=== PATIENT | male | born 1960 | race Caucasian/White ===

== ENCOUNTER 2016-04-23 08:40 | Inpatient (IN) | payer OTHER ==
[2016-04-21 09:28] VITALS: Ht 180.3 cm; Wt 74.8 kg
[2016-04-23] VITALS (20 sets, daily range): BP systolic 126–148; RESP 12–18; TEMP 97.2–99.2
[~2016-04-23] VITALS: Ht 180.3 cm; Wt 74.8 kg
[2016-04-23] MEDS ORDERED: LACT RINGERS 1,000 ML IV SCH ×2 (08:45→09:25)
[2016-04-23] MEDS ORDERED: CEFOXITIN 2,000 MG in SODIUM CHLORIDE 0.9% 100 ML IV ONE (08:50)
[2016-04-23] MEDS ORDERED: METOCLOPRAMIDE 10 MG/2 ML VIAL IV PUSH ONE (09:25)
[2016-04-23] MEDS ORDERED: LIDOCAINE 1% BUFFERED 1 ML SYR INTRADERM PRN (09:25)
[2016-04-23] MEDS ORDERED: FAMOTIDINE 20 MG INJ IV ONE (09:25)
[2016-04-23] MEDS ORDERED: MIDAZOLAM 2 MG/2 ML INJ IV ONE (09:25)
[2016-04-23] MEDS ORDERED: GLYCOPYRROLATE 0.2 MG/ML VIAL IV ONE ×2 (09:25→10:30)
[2016-04-23] MEDS ORDERED: LIDOCAINE 1% 20ML NERVEBLOCK ONE (10:15)
[2016-04-23] MEDS ORDERED: LIDOCAINE 2% SYR 5 ML IV ONE (10:30)
[2016-04-23] MEDS ORDERED: NEOSTIGMINE 10 MG/10 ML VIAL IV ONE (10:30)
[2016-04-23] MEDS ORDERED: DEXAMETHASONE 4 MG/ML VIAL IV ONE (10:30)
[2016-04-23] MEDS ORDERED: ACETAMINOPHEN 1,000 MG/100 ML IV ONE (10:30)
[2016-04-23] MEDS ORDERED: DILAUDID 1 MG/ML AMP IV ONE (10:30)
[2016-04-23] MEDS ORDERED: PROPOFOL 20 ML PER ML IV ONE (10:30)
[2016-04-23] MEDS ORDERED: ONDANSETRON 4 MG VIAL IV PUSH ONE (10:30)
[2016-04-23] MEDS ORDERED: ROCURONIUM 50 MG VIAL IV ONE (10:30)
[2016-04-23] MEDS ORDERED: MORPHINE 2 MG/ML SYR IV PRN ×2 (13:05→14:40)
[2016-04-23] MEDS ORDERED: MORPHINE 4 MG/ML SYR IV PRN (13:05)
[2016-04-23] MEDS ORDERED: MEPERIDINE 25 MG/ML IV PRN (13:05)
[2016-04-23] MEDS ORDERED: ONDANSETRON 4 MG VIAL IV PRN (13:05)
[2016-04-23] MEDS ORDERED: OXYCODONE 5 MG TAB PO PRN (13:05)
[2016-04-23] MEDS ORDERED: ONDANSETRON 4 MG VIAL IV PUSH PRN (14:40)
[2016-04-23] MEDS ORDERED: SODIUM CHLORIDE 0.9% 1,000 ML IV SCH (14:40)
[2016-04-23] MEDS: DILAUDID 1 MG/ML AMP IV PRN ×2 (15:20→15:52)
[2016-04-23] MEDS ORDERED: *PINK BRACELET XX ONE (17:05)
[2016-04-23] MEDS ORDERED: MISSING DOSE XX ONE (18:00)
[2016-04-23] MEDS: SERTRALINE 100 MG TAB PO SCH (18:35)
[2016-04-23] MEDS: *HOME MEDS KEPT IN PHARMACY XX SCH (20:51)
[2016-04-23] MEDS: LEVETIRACETAM 500 MG TAB PO SCH (20:59)
[2016-04-23] MEDS: DOCUSATE SOD 100 MG CAP PO SCH (20:59)
[2016-04-24] VITALS (11 sets, daily range): BP systolic 106–140; RESP 16–20; TEMP 98.8–102.7
[2016-04-24] MEDS: MORPHINE 2 MG/ML SYR IV PRN ×2 (03:15→05:16)
[2016-04-24] MEDS ORDERED: CEFOXITIN 2,000 MG in SODIUM CHLORIDE 0.9% 100 ML IV ONE (06:15)
[2016-04-24] MEDS: DILAUDID 1 MG/ML AMP IV PRN ×8 (07:25→23:47)
[2016-04-24] MEDS: *HOME MEDS KEPT IN PHARMACY XX SCH ×2 (08:00→19:42)
[2016-04-24] MEDS ORDERED: SODIUM CHLORIDE 0.9% 1,000 ML IV SCH ×3 (08:20→17:30)
[2016-04-24] MEDS: DOCUSATE SOD 100 MG CAP PO SCH ×2 (08:45→20:50)
[2016-04-24] MEDS: LEVETIRACETAM 500 MG TAB PO SCH ×2 (08:45→20:50)
[2016-04-24] MEDS: SERTRALINE 100 MG TAB PO SCH (08:45)
[2016-04-24] MEDS ORDERED: CEFOXITIN 2,000 MG in SODIUM CHLORIDE 0.9% 100 ML IV SCH (12:00)
[2016-04-24] MEDS: CEFOXITIN 2,000 MG in SODIUM CHLORIDE 0.9% 100 ML IV SCH ×2 (15:11→23:46)
[2016-04-25 00:50] VITALS: BP_SYST 128; RESP 18; TEMP 102.3
[2016-04-25 02:30] VITALS: BP_SYST 119; RESP 18; TEMP 100
[2016-04-25] MEDS: DILAUDID 1 MG/ML AMP IV PRN ×5 (02:35→18:59)
[2016-04-25] MEDS ORDERED: KCL CR 20 MEQ TAB PO ONE (07:50)
[2016-04-25] MEDS: *HOME MEDS KEPT IN PHARMACY XX SCH ×2 (08:00→20:00)
[2016-04-25 08:02] VITALS: BP_SYST 107; RESP 16; TEMP 98
[2016-04-25] MEDS: CEFOXITIN 2,000 MG in SODIUM CHLORIDE 0.9% 100 ML IV SCH ×3 (08:34→23:13)
[2016-04-25] MEDS: SERTRALINE 100 MG TAB PO SCH (08:36)
[2016-04-25] MEDS: LEVETIRACETAM 500 MG TAB PO SCH ×2 (08:36→20:15)
[2016-04-25] MEDS: DOCUSATE SOD 100 MG CAP PO SCH ×2 (08:36→20:15)
[2016-04-25] MEDS: SENNA 8.6 MG TAB PO SCH (08:37)
[2016-04-25] MEDS: D5-1/2-NS W/KCL 20MEQ/L 1,000 ML IV SCH ×2 (08:39→23:18)
[2016-04-25] MEDS: OXYCODONE 5 MG TAB PO PRN ×3 (11:03→23:14)
[2016-04-25 11:22] VITALS: BP_SYST 109; RESP 16; TEMP 98.3
[2016-04-25 15:34] VITALS: BP_SYST 114; RESP 16; TEMP 98.7
[2016-04-25 18:37] VITALS: BP_SYST 109; RESP 20; TEMP 99.7
[2016-04-26] VITALS (7 sets, daily range): BP systolic 108–136; RESP 18–20; TEMP 98–98.5
[2016-04-26] MEDS: DILAUDID 1 MG/ML AMP IV PRN ×3 (00:54→07:44)
[2016-04-26] MEDS: OXYCODONE 5 MG TAB PO PRN ×3 (04:06→18:40)
[2016-04-26] MEDS: *HOME MEDS KEPT IN PHARMACY XX SCH ×2 (08:00→20:00)
[2016-04-26] MEDS: DOCUSATE SOD 100 MG CAP PO SCH ×2 (08:35→20:57)
[2016-04-26] MEDS: LEVETIRACETAM 500 MG TAB PO SCH ×2 (08:35→20:57)
[2016-04-26] MEDS: SENNA 8.6 MG TAB PO SCH (08:35)
[2016-04-26] MEDS: SERTRALINE 100 MG TAB PO SCH (08:35)
[2016-04-26] MEDS: CEFOXITIN 2,000 MG in SODIUM CHLORIDE 0.9% 100 ML IV SCH (08:39)
[2016-04-26] MEDS: D5-1/2-NS W/KCL 20MEQ/L 1,000 ML IV SCH ×2 (10:53→22:17)
[2016-04-26] MEDS: LEVOFLOXACIN 500 MG TAB PO SCH (13:17)
[2016-04-27 05:00] VITALS: BP_SYST 110; RESP 18; TEMP 98.1
[2016-04-27] MEDS: OXYCODONE 5 MG TAB PO PRN (05:08)
[2016-04-27] MEDS: *HOME MEDS KEPT IN PHARMACY XX SCH ×2 (08:00→11:22)
[2016-04-27] MEDS: DOCUSATE SOD 100 MG CAP PO SCH (08:09)
[2016-04-27 08:17] VITALS: BP_SYST 113; RESP 16; TEMP 98.6
[2016-04-27] MEDS: SERTRALINE 100 MG TAB PO SCH (08:27)
[2016-04-27] MEDS: LEVOFLOXACIN 500 MG TAB PO SCH (08:27)
[2016-04-27] MEDS: LEVETIRACETAM 500 MG TAB PO SCH (08:27)
[2016-04-27] MEDS: SENNA 8.6 MG TAB PO SCH (08:28)
[2016-04-27 11:00] VITALS: BP_SYST 113; RESP 16; TEMP 98.6
== END 2016-04-27 12:09 | disposition home or self-care (01) | DRG 854 ==
LOC: ENRESERVDT → ENRESERVTM → SURG 08:40 → EMR 14:39 → UNDOADMOB 14:50 → 2NO 16:04 → OBSVTOIN 04-24 06:42
PROVIDERS: ADMIT Urology; ATTEND Urology
PROC: 0TC68ZZ Extirpation of Matter from Right Ureter, Via Natural or Artificial Opening Endoscopic (ICD-10-PCS; 2016-04-23)
PROC: 0T768DZ Dilation of Right Ureter with Intraluminal Device, Via Natural or Artificial Opening Endoscopic (ICD-10-PCS; 2016-04-23)
PROC: 0T9B80Z Drainage of Bladder with Drainage Device, Via Natural or Artificial Opening Endoscopic (ICD-10-PCS; 2016-04-23)
PROC: 0TC08ZZ Extirpation of Matter from Right Kidney, Via Natural or Artificial Opening Endoscopic (ICD-10-PCS; principal; 2016-04-23 12:24)
PROC: 0T768ZZ Dilation of Right Ureter, Via Natural or Artificial Opening Endoscopic (ICD-10-PCS; 2016-04-23 12:24)
CPT/HCPCS: 71010; 74176; 74420; 80048; 85025; 87040; 87088; 88300; 88360; 94762; 94799